=== PATIENT | female | born 1960 | race Caucasian/White ===

== ENCOUNTER 2023-01-21 08:54 | Day surgery (SDC) | payer BC ==
[2023-01-14 14:03] VITALS: BMI 50.6
[~2023-01-21 08:54] MED LIST: Pre Op ABX Message 1 EACH MISC MISCELLANE ONE
[2023-01-21] MEDS ORDERED: ONDANSETRON 4 MG/2 ML VIAL IVP ONE (09:03)
[2023-01-21] MEDS ORDERED: LIDOCAINE 1% (10MG/ML) FOR IV START INTRADERMA PRN (09:03)
[2023-01-21] MEDS ORDERED: DEXAMETHASONE SOD PHOSPHATE 4 MG/ML 1 ML VIAL IV ONE (09:03)
[2023-01-21] MEDS ORDERED: MIDAZOLAM 2 MG/2 ML VIAL IV PRN (09:03)
[2023-01-21] MEDS ORDERED: HYDROmorphone 0.5 MG/0.5 ML SYRINGE IVP PRN (09:03)
[2023-01-21] MEDS ORDERED: LACTATED RINGERS 1,000 ML IV SCH (09:03)
[2023-01-21 09:29] VITALS: RESP 16
[2023-01-21] MEDS ORDERED: LIDOCAINE 4% LTA KIT (4 ML) TOPICAL ONE (09:49)
[2023-01-21] MEDS ORDERED: fentaNYL (PF) 50 MCG/ML 2 ML AMP ONE (09:49)
[2023-01-21] MEDS ORDERED: LIDOCAINE 2% INJ 20 MG/ML (2 ML VIAL) ONE (09:49)
[2023-01-21] MEDS ORDERED: SUCCINYLCHOLINE CHLORIDE 200 MG/10 ML VIAL IV ONE (09:49)
[2023-01-21] MEDS ORDERED: PROPOFOL 10 MG/ML 20 ML VIAL IV ONE (09:49)
[2023-01-21] MEDS ORDERED: MIDAZOLAM 2 MG/2 ML VIAL ONE (09:49)
--- NOTE | 2023-01-21 10:28 | P.OP ---
Date of Procedure: 01/21/23 Preoperative Diagnosis: 1. Postmenopausal bleeding 2. Cervical Stenosis Postoperative Diagnosis: Same Procedure(s) Performed: Dilation and Curettage Implants: None Anesthesia: MIA Surgeon: Obdulia Lin Estimated Blood Loss (ml): 20 IV fluids (ml): 500 Urine output (ml): 20 Pathology: other (endometrial curettings) Condition: stable Disposition: same day Indications for Procedure: This is a 62 year old female with postmenopausal bleeding. She went through menopause approximately 10 years ago. For the past several years she had pink spotting off and on. For the past month, she has had more continuous vaginal bleeding that she describes as pink and mucous-like. Endometrial biopsy was attempted in the office, but unable to be performed secondary to cervical stenosis. Hysteroscopy D&C was recommended to the patient for endometrial sampling. The risks, benefits, and alternatives to hysteroscopy D&C were discussed with the patient including risk of bleeding, infection, uterine perforation, and damage to surrounding structures. The patient accepts these risks and desires to proceed. Operative Findings: Very posterior and difficult to reach cervix, nearly flush with the vaginal wall. Due to the difficulty in reaching the cervix with the long weighted speculum and the long right angle retractor, the decision was made to perform blind endometrial sampling rather than sampling under hysteroscopic guidance. Moderate endometrial tissue was obtained with sampling. Description of Procedure: Patient is brought to the operating suite and placed in the dorsal lithotomy position. The cervix perineum and lower abdomen are prepped and draped in the usual sterile fashion. Examination under anesthesia reveals a retroverted uter us. Adnexa are diffucult to appreciate given obese body habitus. The bladder is drained for approximately 20 mL of clear yellow urine. The anterior lip of the cervix is grasped with a single toothed tenaculum after the long weighted speculum is placed into the vagina. The uterus sounds to a depth of 8 cm in the retroverted position. The Hanks dilators are placed and the cervix was dilated to 12 mm. A medium sharp curette is used and the global endometrial curettings are obtained. All sponge needle and instrument counts are correct. Instrumentation is removed from the vagina and the patient is brought to the recovery room in stable condition. Patient will follow up with me in the office in 2 weeks. Verbal and written instructions are provided.
[2023-01-21 10:37] VITALS: TEMP 96.8
[2023-01-21] MEDS ORDERED: KETOROLAC 15 MG/ML 1 ML VIAL IVP ONE (10:40)
[2023-01-21 11:42] VITALS: BP 121/56; PULSE 51
== END 2023-01-21 12:19 | disposition home or self-care (01) ==
LOC: OR 08:54
PROVIDERS: ATTEND Obstetrics & Gynecology
DX: N95.0 Postmenopausal bleeding (principal); N88.2 Stricture and stenosis of cervix uteri; M48.02 Spinal stenosis, cervical region; N88.3 Incompetence of cervix uteri; J45.909 Unspecified asthma, uncomplicated; K21.9 Gastro-esophageal reflux disease without esophagitis; Z88.8 Allergy status to other drugs, medicaments and biological substances; Z79.899 Other long term (current) drug therapy
CPT/HCPCS: 88305; 58558; J2250; J0330; J1100; J2405; J3010; J1885; J2704; J2001